=== PATIENT | female | born 1995 | race Caucasian/White ===

== ENCOUNTER 2023-06-08 09:21 | Inpatient (IN) | payer MEDICAID ==
[~2023-06-08] VITALS: Ht 172.7 cm; Wt 56.7 kg
[2023-06-08] MEDS ORDERED: ZOLPIDEM TARTRATE 10 MG TABLET PO PRN (09:45)
[2023-06-08] MEDS ORDERED: HALOPERIDOL 5 MG TABLET PO PRN (09:45)
[2023-06-08 09:54] LABS: BASOPHILS % (AUTO) 0.4 % (0.0-2.0); EOSINOPHILS % (AUTO) 0.5 % (1.0-6.0); HEMATOCRIT 42.6 % (36-46); HEMOGLOBIN 14.7 g/dL (12.0-16.0); LYMPHOCYTES # (AUTO) 0.7 K/uL (1.0-4.8); MEAN CORPUSCULAR HEMOGLOBIN 33.9 pg (26.0-34.0); MEAN CORPUSCULAR HGB CONC 34.5 G/dL (31.0-37.0); MEAN CORPUSCULAR VOLUME 98 fL (80-100); MONOCYTES # (AUTO) 0.3 K/uL (0.1-1.0); MONOCYTES % (AUTO) 5.4 % (2.0-9.0); NEUTROPHILS # (AUTO) 3.8 K/uL (1.8-7.7); NEUTROPHILS % (AUTO) 78.7 % (40.0-70.0); PLATELET COUNT (AUTO) 265 K/uL (150-450); RED BLOOD CELL COUNT(AUTO) 4.35 MIL/uL (4.00-5.20); RED CELL DISTRIBUTION WIDTH 12.6 % (11.5-14.5); WHITE BLOOD COUNT (AUTO) 4.8 K/uL (4.5-11.0)
[2023-06-08 09:58] LABS: ANION GAP 21 mmol/L (8-16); CALCIUM, TOTAL 10.3 mg/dL (8.8-10.5); CARBON DIOXIDE 21 mmol/L (22-29); CHLORIDE 97 mmol/L (98-107); CREATININE 1.21 mg/dL (0.60-1.30); GLOMERULAR FILTR. RATE CALC 54 mL/min (>60); GLUCOSE,RANDOM 142 mg/dL (70-110); POTASSIUM 3.7 mmol/L (3.5-5.1); SODIUM SERUM 139 mmol/L (136-145); UREA NITROGEN, BLOOD 11 mg/dL (7-18)
[2023-06-08 10:03] LABS: ALCOHOL, BLOOD (SERUM) < 3 mg/dL (0-10)
[2023-06-08 10:04] LABS: ALANINE AMINOTRANSFERASE 21 U/L (12-78); ALBUMIN 5.2 g/dL (3.4-5.0); ALKALINE PHOSPHATASE 71 U/L (46-116); ASPARTATE AMINOTRANSFERASE 29 U/L (15-37); BILIRUBIN,TOTAL 1.1 mg/dL (0.1-1.0)
[2023-06-08 10:56] LABS: COVID AG,FIA SOURCE NASAL SWAB
[2023-06-08] MEDS ORDERED: ONDANSETRON HCL 4 MG TABLET PO PRN (11:00)
[2023-06-08] MEDS ORDERED: OMEPRAZOLE 20 MG CAPSULE PO PRN (11:00)
[2023-06-08] MEDS ORDERED: ALBUTEROL SULFATE HFA 90 MCG/PUFF 8 GM INHALER IH PRN (11:00)
[2023-06-08] MEDS ORDERED: BENZOCAINE/MENTHOL LOZENGE PO PRN (11:00)
[2023-06-08] MEDS ORDERED: DOCUSATE SODIUM 100 MG CAPSULE PO PRN (11:00)
[2023-06-08] MEDS ORDERED: CloNIDine HCL 0.1 MG TABLET PO PRN (11:00)
[2023-06-08] MEDS ORDERED: MAGNESIUM HYDROXIDE SUSPENSION 30 ML UDCUP PO PRN (11:00)
[2023-06-08] MEDS ORDERED: ACETAMINOPHEN 325 MG TABLET PO PRN (11:00)
[2023-06-08] MEDS ORDERED: LOPERAMIDE HCL 2 MG CAPSULE PO PRN (11:00)
[2023-06-08] MEDS ORDERED: IBUPROFEN 600 MG TABLET PO PRN (11:00)
[2023-06-08] MEDS ORDERED: PETROLATUM,WHITE 28 GM JELLY TP PRN (11:00)
[2023-06-08] MEDS ORDERED: BACITRACIN 28 GM OINTMENT TP PRN (11:00)
[2023-06-08] MEDS ORDERED: MAG HYDROX/ALUMINUM HYD/SIMETH ES 30 ML SUSPENSION UDCUP PO PRN (11:00)
[2023-06-08 11:13] LABS: SARS-COV2 (COVID) ANTIGEN,FIA Negative (Negative)
[2023-06-08] MEDS ORDERED: LORazepam 2 MG/ML VIAL IVP ONE (11:45)
[2023-06-08] MEDS ORDERED: SODIUM CHLORIDE 0.9% 1,000 ML IV ONE (11:45)
[2023-06-08 14:03] LABS: LACTIC ACID 2.1 mmol/L (0.4-2.0)
[2023-06-08 17:00] VITALS: BP 133/83; PULSE 89; RESP 18; TEMP 97.7; O2SAT 99
[2023-06-08] MEDS ORDERED: INFLUENZA VIRUS VACCINE QVS 2023-24 (6MO+)/PF 60 MCG/0.5 ML SYRINGE IM. ONE (18:30)
[2023-06-08 20:45] VITALS: BP 112/70; PULSE 82; RESP 18; TEMP 98; O2SAT 98
[2023-06-09 08:30] LABS: BASOPHILS % (AUTO) 0.7 % (0.0-2.0); EOSINOPHILS % (AUTO) 1.2 % (1.0-6.0); HEMATOCRIT 40.4 % (36-46); LYMPHOCYTES # (AUTO) 1.7 K/uL (1.0-4.8); MEAN CORPUSCULAR HEMOGLOBIN 33.9 pg (26.0-34.0); MEAN CORPUSCULAR HGB CONC 34.6 G/dL (31.0-37.0); MEAN CORPUSCULAR VOLUME 98 fL (80-100); MONOCYTES # (AUTO) 0.2 K/uL (0.1-1.0); MONOCYTES % (AUTO) 5.5 % (2.0-9.0); NEUTROPHILS # (AUTO) 2.4 K/uL (1.8-7.7); NEUTROPHILS % (AUTO) 54.6 % (40.0-70.0); PLATELET COUNT (AUTO) 257 K/uL (150-450); RED BLOOD CELL COUNT(AUTO) 4.13 MIL/uL (4.00-5.20); RED CELL DISTRIBUTION WIDTH 13.1 % (11.5-14.5); WHITE BLOOD COUNT (AUTO) 4.4 K/uL (4.5-11.0)
[2023-06-09 08:44] LABS: HEMOGLOBIN A1C 4.7 % (3.8-5.6)
[2023-06-09 08:56] LABS: ALANINE AMINOTRANSFERASE 19 U/L (12-78); ALBUMIN 4.8 g/dL (3.4-5.0); ALKALINE PHOSPHATASE 63 U/L (46-116); ANION GAP 11 mmol/L (8-16); ASPARTATE AMINOTRANSFERASE 22 U/L (15-37); CALCIUM, TOTAL 9.7 mg/dL (8.8-10.5); CARBON DIOXIDE 26 mmol/L (22-29); CHLORIDE 101 mmol/L (98-107); CHOL/HDL RATIO 2.3 (3.9-5.7); CHOLESTEROL 197 mg/dL (131-200); CREATININE 0.86 mg/dL (0.60-1.30); GLOMERULAR FILTR. RATE CALC > 60 mL/min (>60); GLUCOSE,RANDOM 100 mg/dL (70-110); HDL CHOLESTEROL 84 mg/dL (40-60); LDL CHOL (CALC.) 96 mg/dL (0-130); PHOSPHORUS 4.2 mg/dL (2.5-4.9); POTASSIUM 3.7 mmol/L (3.5-5.1); SODIUM SERUM 138 mmol/L (136-145); THYROID STIMULATING HORMONE 3.56 uIU/mL (0.36-3.74); TOTAL PROTEIN, SERUM 7.4 g/dL (6.4-8.2); TRIGLYCERIDES 83 mg/dL (15-150); UREA NITROGEN, BLOOD 11 mg/dL (7-18)
[2023-06-09 10:08] VITALS: BP 105/58; PULSE 79; RESP 18; TEMP 98.7; O2SAT 96
[2023-06-09] MEDS: LORazepam 2 MG TABLET PO PRN (11:25)
[2023-06-09] MEDS: RisperiDONE 2 MG TABLET PO SCH (16:27)
[2023-06-09] MEDS ORDERED: RisperiDONE 3 MG TABLET PO SCH (17:00)
[2023-06-09 20:48] VITALS: BP 109/60; PULSE 105; RESP 17; TEMP 97.7; O2SAT 98
[2023-06-10] MEDS: LORazepam 2 MG TABLET PO PRN (08:09)
[2023-06-10] MEDS: RisperiDONE 2 MG TABLET PO SCH ×2 (08:09→16:13)
[2023-06-10 08:24] LABS: APPEARANCE,URINE CLEAR (CLEAR); BILIRUBIN,URINE NEGATIVE (NEGATIVE); COLOR,URINE LIGHT YELLOW (YELLOW); GLUCOSE, URINE (UA) NEGATIVE (NEGATIVE); KETONES,URINE NEGATIVE (NEGATIVE); LEUKOCYTE ESTERASE ,URINE SMALL (NEGATIVE); NITRATE,URINE NEGATIVE (NEGATIVE); OCCULT BLOOD,URINE TRACE (NEGATIVE); PH,URINE 5.5 (5.0-8.0); PROTEIN,URINE NEGATIVE (NEGATIVE); UROBILINOGEN,URINE <=1.0 mg/dL (<=1.0)
[2023-06-10 08:34] LABS: BACTERIA,URINE Few /HPF (None Seen); RBC,URINE 0-2 /HPF (0-2); SQUAMOUS EPITHELIAL CELL,UR Few /LPF (None Seen)
[2023-06-10 08:35] LABS: LACTIC ACID 0.7 mmol/L (0.4-2.0)
[2023-06-10 08:52] VITALS: BP 106/68; PULSE 102; RESP 18; TEMP 98.3; O2SAT 98
[2023-06-10 09:42] LABS: PH,URINE DRUG SCREEN 5.5 (5.0-8.0)
[2023-06-10 09:47] LABS: ALCOHOL, URINE DRUG SCREEN NEGATIVE (NEGATIVE); AMPHET/METH SCREEN,URINE NEGATIVE (NEGATIVE); BARBITURATE SCREEN, URINE NEGATIVE (NEGATIVE); BENZODIAZEPINES SCREEN,URINE NEGATIVE (NEGATIVE); CANNABINOID SCREEN,URINE NEGATIVE (NEGATIVE); COCAINE SCREEN,URINE NEGATIVE (NEGATIVE); METHADONE SCREEN, URINE NEGATIVE (NEGATIVE); OPIATE SCREEN,URINE NEGATIVE (NEGATIVE); PHENCYCLIDINE SCREEN,URINE NEGATIVE (NEGATIVE)
[2023-06-10 22:02] VITALS: BP 106/70; PULSE 80; TEMP 96.1; O2SAT 99
[2023-06-11] MEDS: RisperiDONE 2 MG TABLET PO SCH (08:27)
[2023-06-11 10:30] VITALS: BP 107/72; PULSE 113; RESP 16; TEMP 97.3; O2SAT 100
[2023-06-11] MEDS ORDERED: RISP2TAB86 PO (12:23)
== END 2023-06-11 15:45 | disposition home or self-care (01) | DRG 753 ==
LOC: EMS 09:22 → B3A 10:26
PROVIDERS: ADMIT Psychiatry & Neurology Psychiatry; ATTEND Psychiatry & Neurology Psychiatry
DX: F31.9 Bipolar disorder, unspecified (principal); R45.851 Suicidal ideations; K59.00 Constipation, unspecified; F41.9 Anxiety disorder, unspecified; G47.00 Insomnia, unspecified; F20.9 Schizophrenia, unspecified; F60.3 Borderline personality disorder; Z72.0 Tobacco use; Z91.83 Wandering in diseases classified elsewhere; Z20.822 Contact with and (suspected) exposure to COVID-19
CPT/HCPCS: 70450; 72125; 80053; 80061; 80307; 81001; 83036; 83605; 83735; 84100; 84443; 84703; 85025; 87081; 87086; 87186; 99285; G0480; J2060; J7030